=== PATIENT | female | born 1985 | race Caucasian/White ===

== ENCOUNTER → 2017-08-20 | Outpatient (CLI) | payer MEDICAID, SELFPAY | LOC: M OUTALCOH 08:19 | DX: F12.20 Cannabis dependence, uncomplicated (principal) ==

== ENCOUNTER → 2017-12-03 | Outpatient (CLI) | payer MEDICAID | LOC: M OUTALCOH 08:03 | DX: F11.20 Opioid dependence, uncomplicated (principal); F12.20 Cannabis dependence, uncomplicated; F14.20 Cocaine dependence, uncomplicated ==

== ENCOUNTER 2017-12-11 13:16 | Outpatient (RCR) | payer MEDICAID | END 2017-12-19 | LOC: M OUTALCOH 12-18 15:00 | DX: F12.20 Cannabis dependence, uncomplicated (principal); F17.200 Nicotine dependence, unspecified, uncomplicated; F11.20 Opioid dependence, uncomplicated; F14.20 Cocaine dependence, uncomplicated ==

== ENCOUNTER 2017-12-25 10:12 | Outpatient (RCR) | payer MEDICAID | END 2018-01-18 | LOC: M OUTALCOH 01-14 09:00 | DX: F12.20 Cannabis dependence, uncomplicated (principal); F17.200 Nicotine dependence, unspecified, uncomplicated; F11.20 Opioid dependence, uncomplicated; F14.20 Cocaine dependence, uncomplicated ==

== ENCOUNTER 2018-01-20 10:46 | Outpatient (RCR) | payer MEDICAID | END 2018-02-18 | LOC: M OUTALCOH 10:46 | DX: F12.20 Cannabis dependence, uncomplicated (principal); F17.200 Nicotine dependence, unspecified, uncomplicated; F11.20 Opioid dependence, uncomplicated; F14.20 Cocaine dependence, uncomplicated ==

== ENCOUNTER 2018-03-25 11:34 | Outpatient (RCR) | payer MEDICAID | END 2018-04-20 | LOC: M OUTALCOH 11:34 | DX: F12.20 Cannabis dependence, uncomplicated (principal); F17.200 Nicotine dependence, unspecified, uncomplicated; F11.20 Opioid dependence, uncomplicated; F14.20 Cocaine dependence, uncomplicated ==

== ENCOUNTER 2018-04-21 10:24 | Outpatient (RCR) | payer MEDICAID | END 2018-05-21 | LOC: M OUTALCOH 04-22 10:00 | DX: F12.20 Cannabis dependence, uncomplicated (principal); F17.200 Nicotine dependence, unspecified, uncomplicated; F11.20 Opioid dependence, uncomplicated; F14.20 Cocaine dependence, uncomplicated ==

== ENCOUNTER 2018-05-23 09:29 | Outpatient (RCR) | payer MEDICAID | END 2018-06-20 | LOC: M OUTALCOH 09:29 | DX: F12.20 Cannabis dependence, uncomplicated (principal); F17.200 Nicotine dependence, unspecified, uncomplicated; F11.20 Opioid dependence, uncomplicated; F14.20 Cocaine dependence, uncomplicated ==

== ENCOUNTER 2018-07-18 13:00 | Outpatient (RCR) | payer MEDICAID ==
[~2018-07-18 13:00] MED LIST: MOTR200T44 PO; VICO5TAB16 PO
== END 2018-07-21 ==
LOC: M OUTALCOH 13:00
PROVIDERS: ATTEND Psychiatry & Neurology Psychiatry
DX: F12.20 Cannabis dependence, uncomplicated (principal); F17.200 Nicotine dependence, unspecified, uncomplicated; F11.20 Opioid dependence, uncomplicated; F14.20 Cocaine dependence, uncomplicated

== ENCOUNTER → 2018-08-21 | Outpatient (RCR) | payer MEDICAID | LOC: M OUTALCOH 07-23 13:00 | PROVIDERS: ATTEND Psychiatry & Neurology Psychiatry | DX: F12.20 Cannabis dependence, uncomplicated (principal); F11.20 Opioid dependence, uncomplicated; F14.20 Cocaine dependence, uncomplicated; F17.200 Nicotine dependence, unspecified, uncomplicated ==

== ENCOUNTER 2018-09-17 08:00 | Outpatient (RCR) | payer MEDICAID | END 2018-09-18 | LOC: M OUTALCOH 08:00 | PROVIDERS: ATTEND Psychiatry & Neurology Psychiatry | DX: F12.20 Cannabis dependence, uncomplicated (principal); F11.20 Opioid dependence, uncomplicated; F14.20 Cocaine dependence, uncomplicated; F17.200 Nicotine dependence, unspecified, uncomplicated ==

== ENCOUNTER 2018-10-14 09:00 | Outpatient (RCR) | payer MEDICAID | END 2018-10-19 | LOC: M OUTALCOH 09:00 | PROVIDERS: ATTEND Psychiatry & Neurology Psychiatry | DX: F12.20 Cannabis dependence, uncomplicated (principal); F17.200 Nicotine dependence, unspecified, uncomplicated; F11.20 Opioid dependence, uncomplicated; F14.20 Cocaine dependence, uncomplicated ==

== ENCOUNTER → 2020-04-13 | Outpatient (REF) | payer MEDICAID ==
[~2020-04-13] MED LIST changes: -VICO5TAB16 PO; +VICO5TAB17 PO
== END ==
LOC: M LAB REF 12:23
PROVIDERS: ATTEND Physician Assistant
DX: Z11.3 Encounter for screening for infections with a predominantly sexual mode of transmission (principal)

== ENCOUNTER → 2020-07-04 | Outpatient (REF) | payer MEDICAID | LOC: M LAB REF 21:04 | PROVIDERS: ATTEND Physician Assistant | DX: Z11.3 Encounter for screening for infections with a predominantly sexual mode of transmission (principal) ==

== ENCOUNTER → 2020-08-31 | Outpatient (REF) | payer MEDICAID ==
[2020-08-31 20:44] LABS: CHLAMYDIA DNA AMPLIFICATION NEGATIVE (NEGATIVE); GC DNA AMPLIFICATION NEGATIVE (NEGATIVE)
== END ==
LOC: M LAB REF 16:56
PROVIDERS: ATTEND Physician Assistant
DX: Z11.3 Encounter for screening for infections with a predominantly sexual mode of transmission (principal)

== ENCOUNTER → 2020-09-26 | Outpatient (REF) | payer OTHER | LOC: M LAB REF 17:18 | PROVIDERS: ATTEND Physician Assistant Medical | DX: Z11.3 Encounter for screening for infections with a predominantly sexual mode of transmission (principal) ==

== ENCOUNTER → 2022-07-12 | Outpatient (REF) | payer OTHER ==
[2022-07-12 15:58] LABS: APPEARANCE, URINE MANUAL CLOUDY (CLEAR); COLOR, URINE MANUAL YELLOW (YELLOW)
[2022-07-12 15:59] LABS: BILIRUBIN, URINE MANUAL 1+ (NEGATIVE); BLOOD URINE MANUAL POSITIVE (NEGATIVE); GLUCOSE, URINE (UA) MANUAL NEGATIVE (NEGATIVE); KETONE, URINE MANUAL NEGATIVE (NEGATIVE); LEUKOCYTE ESTERASE, URINE MAN POSITIVE (NEGATIVE); NITRITE, URINE MANUAL POSITIVE (NEGATIVE); PROTEIN, URINE MANUAL NEGATIVE (NEGATIVE); UROBILINOGEN, URINE MANUAL 1 MG mg/dl (NORMAL)
[2022-07-12 16:13] LABS: BACTERIA, URINE LARGE AMOUNT; CALCIUM OXALATE CRYSTALS,URINE LARGE AMOUNT /hpf; HYALINE CAST, URINE NONE SEEN /lpf (0-1); RBC, URINE 0-1 /hpf (0-3); SQUAMOUS EPITHELIAL CELL URINE SMALL AMOUNT /hpf (SMALL AMT)
[2022-07-12 17:53] LABS: GC DNA AMPLIFICATION NEGATIVE (NEGATIVE)
== END ==
LOC: M LAB REF 12:50
PROVIDERS: ATTEND Physician Assistant
DX: Z20.2 Contact with and (suspected) exposure to infections with a predominantly sexual mode of transmission (principal)